=== PATIENT | male | born 1945 | race Caucasian/White ===

== ENCOUNTER 2023-04-06 07:07 | Outpatient (RCR) | payer MEDICARE, OTHER, SELFPAY | END 2023-04-06 10:15 | disposition home or self-care (01) | LOC: RPT 07:07 | PROVIDERS: ATTENDING PHYSICIAN Physical Medicine & Rehabilitation; FAMILY PHYSICIAN Physician Assistant | DX: I71.010 Dissection of ascending aorta (principal); Z73.6 Limitation of activities due to disability; J38.00 Paralysis of vocal cords and larynx, unspecified; R49.0 Dysphonia | CPT/HCPCS: 92507; 97112; 97530 ==

== ENCOUNTER 2023-05-31 06:14 | Day surgery (SDC) | payer OTHER, SELFPAY ==
[2023-05-22 09:05] VITALS: BMI 32.0
[2023-05-22 09:06] LABS: Hematocrit 38.6 % (39.0-52.0); Hemoglobin 12.4 g/dL (13.0-18.0); Mean Corp Hgb Conc. 32.1 g/dL (33.0-37.0); Mean Corpuscular Hgb 26.4 pg (27.0-31.0); Mean Corpuscular Volume 82.1 fL (80.0-94.0); Mean Platelet Volume 10.8 fL (7.4-10.4); Platelet Count 220 10^3/uL (130-400); White Blood Cell Count 5.4 10^3/uL (4.8-10.8)
[2023-05-22 09:22] LABS: INR 2.32; PT 25.9 Sec (11.4-14.6)
[2023-05-22 09:23] LABS: APTT 62.3 Sec (23.4-35.0)
[2023-05-22 09:42] LABS: ALT (SGPT) 32 U/L (0-50); AST (SGOT) 27 U/L (17-59); Albumin 3.7 g/dl (3.5-5.0); Alkaline Phosphatase 73 U/L (38-126); Blood Urea Nitrogen 24 mg/dl (9-20); Carbon Dioxide 28 mmol/L (22-30); Chloride 101 mmol/L (98-107); Estimated Creatinine Clearance 92 ml/min; Glucose 100 mg/dl (70-99); Potassium 4.1 mmol/L (3.5-5.1); Sodium 136 mmol/L (135-145); Total Bilirubin 0.8 mg/dl (0.2-1.3); Total Protein 5.9 g/dl (6.3-8.2); eGFR > 60.00
--- NOTE | 2023-05-29 10:44 | PTCARENOTE ---
Cely in Dr. Isidro office made aware of INR 2.32, PTT 62.3. Pt is on wafarin.
[2023-05-31] VITALS (9 sets, daily range): BP systolic 129–160; BP diastolic 72–96; BMI 32.0
[2023-05-31] MEDS: NORMOSOL-R 1000 IV (08:00)
[2023-05-31] MEDS: AMPICILLIN 108 MG IV (08:40)
[2023-05-31] MEDS: TYLENOL 650 MG PO (13:47)
--- NOTE | 2023-05-31 14:03 | PTCARENOTE ---
Patient is mildly dizzy with standing. Per d/c instructions patient is to expect mild dizziness. Patient did void prior to discharge. Patient awaiting surgeon to see him prior to discharge per surgeon. Will monitor patient.
== END 2023-05-31 14:22 | disposition home or self-care (01) ==
LOC: SDS 06:14
PROVIDERS: ATTENDING PHYSICIAN Otolaryngology; FAMILY PHYSICIAN Physician Assistant; OTHER PHYSICIAN Internal Medicine Cardiovascular Disease
DX: J38.01 Paralysis of vocal cords and larynx, unilateral (principal); H72.01 Central perforation of tympanic membrane, right ear; R49.0 Dysphonia
CPT/HCPCS: 31571; 69610; 36415; 80053; 85027; 85610; 85730; C1878

== ENCOUNTER → 2023-07-11 09:05 | Outpatient (REF) | payer OTHER, SELFPAY | LOC: HWRAD 09:05 | PROVIDERS: ATTENDING PHYSICIAN Thoracic Surgery (Cardiothoracic Vascular Surgery); FAMILY PHYSICIAN Physician Assistant | DX: Z98.890 Other specified postprocedural states (principal); Z01.818 Encounter for other preprocedural examination | CPT/HCPCS: 71275; 74174; Q9967 ==

== ENCOUNTER → 2023-07-17 07:28 | Outpatient (REF) | payer OTHER, SELFPAY ==
[2023-07-17 09:34] LABS: Blood Urea Nitrogen 22 mg/dl (9-20); Calcium 9.6 mg/dl (8.4-10.2); Carbon Dioxide 29 mmol/L (22-30); Chloride 100 mmol/L (98-107); Glucose 98 mg/dl (70-99); Potassium 4.5 mmol/L (3.5-5.1); Sodium 137 mmol/L (135-145); eGFR > 60.00
[2023-07-17 09:44] LABS: INR 1.16; PT 14.6 Sec (11.4-14.6)
== END ==
LOC: HWLAB 07:28
PROVIDERS: ATTENDING PHYSICIAN Internal Medicine Cardiovascular Disease; FAMILY PHYSICIAN Physician Assistant; REFERRING PHYSICIAN Internal Medicine Cardiovascular Disease
DX: I48.0 Paroxysmal atrial fibrillation (principal); I10 Essential (primary) hypertension
CPT/HCPCS: 36415; 80048; 85610

== ENCOUNTER → 2023-08-30 11:37 | Outpatient (REF) | payer OTHER, SELFPAY ==
[2023-08-30 15:19] LABS: Albumin 4.2 g/dl (3.5-5.0); Blood Urea Nitrogen 27 mg/dl (9-20); Calcium 9.2 mg/dl (8.4-10.2); Carbon Dioxide 26 mmol/L (22-30); Chloride 102 mmol/L (98-107); Glucose 97 mg/dl (70-99); Phosphorus 4.3 mg/dl (2.5-4.5); Potassium 4.7 mmol/L (3.5-5.1); Sodium 135 mmol/L (135-145); eGFR > 60.00
== END ==
LOC: HWLAB 11:37
PROVIDERS: ATTENDING PHYSICIAN Internal Medicine Cardiovascular Disease; FAMILY PHYSICIAN Physician Assistant; REFERRING PHYSICIAN Internal Medicine Cardiovascular Disease
DX: I10 Essential (primary) hypertension (principal)
CPT/HCPCS: 36415; 80069

== ENCOUNTER → 2023-10-12 12:50 | Outpatient (REF) | payer OTHER, SELFPAY | LOC: RCS 12:50 | PROVIDERS: ATTENDING PHYSICIAN Nurse Practitioner | DX: I48.0 Paroxysmal atrial fibrillation (principal) | CPT/HCPCS: 93005 ==

== ENCOUNTER → 2023-10-18 09:58 | Outpatient (REF) | payer OTHER, SELFPAY | LOC: RCS 09:58 | PROVIDERS: ATTENDING PHYSICIAN Internal Medicine Cardiovascular Disease; FAMILY PHYSICIAN Physician Assistant | DX: I48.0 Paroxysmal atrial fibrillation (principal) | CPT/HCPCS: 93225; 93226 ==

== ENCOUNTER → 2023-11-28 11:10 | Outpatient (REF) | payer OTHER, SELFPAY ==
[2023-11-28 12:21] LABS: % Basophils 0.5 % (0-2); % Eosinophils 1.1 % (0-6); % Immature Granulocytes 0.4 % (0-0.5); % Lymphocytes 14.7 % (20.5-51.1); % Neutrophils 78.3 % (42.2-75.2); Absolute Eosinophils 0.1 10^3/uL (0-0.7); Absolute Lymphocytes 1.1 10^3/uL (1.2-3.4); Absolute Monocytes 0.4 10^3/uL (0.1-0.6); Absolute Neutrophils 5.8 10^3/uL (1.4-6.5); Hematocrit 40.3 % (39.0-52.0); Hemoglobin 13.4 g/dL (13.0-18.0); Mean Corp Hgb Conc. 33.3 g/dL (33.0-37.0); Mean Corpuscular Hgb 28.4 pg (27.0-31.0); Mean Corpuscular Volume 85.4 fL (80.0-94.0); Mean Platelet Volume 10.4 fL (7.4-10.4); Nucleated Red Blood Cells % 0 % (-); Platelet Count 186 10^3/uL (130-400); Red Blood Cell Count 4.72 10^6/uL (4.70-6.10); Red Cell Dist. Width 13.2 % (11.5-14.5); White Blood Cell Count 7.4 10^3/uL (4.8-10.8)
[2023-11-28 14:10] LABS: Albumin 4.6 g/dl (3.5-5.0); Blood Urea Nitrogen 27 mg/dl (9-20); Calcium 9.2 mg/dl (8.4-10.2); Carbon Dioxide 27 mmol/L (22-30); Chloride 100 mmol/L (98-107); Glucose 99 mg/dl (70-99); Iron 104 ug/dl (49-181); Phosphorus 3.8 mg/dl (2.5-4.5); Potassium 4.4 mmol/L (3.5-5.1); Sodium 136 mmol/L (135-145); eGFR > 60.00
[2023-11-28 14:19] LABS: Percent Saturation 36 % (20-50); Total Iron Binding Capacity 285 ug/dl (261-462)
== END ==
LOC: HWLAB 11:10
PROVIDERS: ATTENDING PHYSICIAN Internal Medicine Cardiovascular Disease; FAMILY PHYSICIAN Physician Assistant
DX: I71.010 Dissection of ascending aorta (principal); I71.012 Dissection of descending thoracic aorta; I10 Essential (primary) hypertension; D50.9 Iron deficiency anemia, unspecified
CPT/HCPCS: 36415; 80069; 83540; 83550; 85025

== ENCOUNTER 2023-12-18 22:12 | Observation (INO) | payer OTHER, SELFPAY ==
[2023-12-18 15:09] VITALS: BP 150/82
[2023-12-18 15:39] LABS: % Basophils 0.4 % (0-2); % Eosinophils 1.1 % (0-6); % Immature Granulocytes 0.6 % (0-0.5); % Monocytes 5.1 % (1.7-9.3); % Neutrophils 82.8 % (42.2-75.2); Absolute Eosinophils 0.1 10^3/uL (0-0.7); Absolute Immature Granulocytes 0.1 10^3/uL (0-0.05); Absolute Lymphocytes 0.8 10^3/uL (1.2-3.4); Absolute Monocytes 0.4 10^3/uL (0.1-0.6); Absolute Neutrophils 6.9 10^3/uL (1.4-6.5); Hematocrit 35.4 % (39.0-52.0); Hemoglobin 12.2 g/dL (13.0-18.0); Mean Corp Hgb Conc. 34.5 g/dL (33.0-37.0); Mean Corpuscular Hgb 28.2 pg (27.0-31.0); Mean Corpuscular Volume 81.9 fL (80.0-94.0); Mean Platelet Volume 10.4 fL (7.4-10.4); Nucleated Red Blood Cells % 0 % (-); Platelet Count 173 10^3/uL (130-400); Red Blood Cell Count 4.32 10^6/uL (4.70-6.10); Red Cell Dist. Width 13.4 % (11.5-14.5); White Blood Cell Count 8.3 10^3/uL (4.8-10.8)
[2023-12-18 16:10] LABS: ALT (SGPT) 22 U/L (0-50); AST (SGOT) 28 U/L (17-59); Albumin 4.5 g/dl (3.5-5.0); Alkaline Phosphatase 93 U/L (38-126); Blood Urea Nitrogen 24 mg/dl (9-20); Calcium 8.9 mg/dl (8.4-10.2); Carbon Dioxide 24 mmol/L (22-30); Chloride 102 mmol/L (98-107); Glucose 140 mg/dl (70-99); Potassium 4.3 mmol/L (3.5-5.1); Sodium 137 mmol/L (135-145); Total Bilirubin 0.9 mg/dl (0.2-1.3); Total Protein 6.7 g/dl (6.3-8.2); eGFR > 60.00
[2023-12-18 17:00] VITALS: BP 136/76
[2023-12-18] MEDS: TYLENOL 500 MG PO (18:34)
[2023-12-18 19:00] VITALS: BP 128/97
[2023-12-18 19:09] LABS: Troponin I < 0.012 ng/ml
--- NOTE | 2023-12-18 19:22 | ED.GENMED ---
History of Present Illness
General
Chief Complaint: Fainting Sensation
Time Seen by Provider: 12/18/23 17:21
History of Present Illness
History of Present Illness:
78-year-old male with history of hypertension, aortic dissection, CVA presenting to the emergency department for concern of strokelike symptoms. Patient reports around 1 PM today he was walking and felt off balanced. He was in his house, went
upstairs and saw his . His noted that he was diaphoretic and pale on the plane he was going to pass out, so he sat down. He reports that he had a stroke in August, at which time his symptoms were visual. Denied any chest pain or difficulty
breathing. Denies weakness or numbness to his extremities. felt that his face was slightly drooped. He checked his blood pressure during the event, reports that it was elevated, and notes that his boarding mother recently increase his valsartan
from once a day to twice a day. He notes that his symptoms have since improved, reports some residual headache. He denies additional acute medical complaints.
Past History
Past History
ED Past Medical History: HTN, Hypercholesterolemia and Other (Aortic dissection)
ED Past Surgical History: Cardiac and Orthopedic
Social History
Tobacco: Non-smoker
Alcohol: None
Drug: None
Personal:
Living: with family
Phy Exam
Physical Exam
Physical Exam:
General: Well-appearing, no clinical signs of dehydration, nontoxic and in no acute distress
HEENT: protecting airway
Neck: appears supple
CV: Normal heart rate, regular rhythm, no evidence of cyanosis
Resp: No accessory muscle use, no increased work of breathing, lungs clear to auscultation bilaterally
Abd: Soft and non-distended, no tenderness to palpation
Extremities: No deformities, no swelling, no erythema
Neuro: alert, no focal neurologic deficit
: deferred
Rectal: deferred
Psych: Normal affect
Skin: Intact
Scores
NIH Stroke Score
Level of Consciousness: 0 - Alert
LOC Questions: 0-Answers both correctly
LOC Commands: 0-Performs both correctly
Best Horizontal Gaze: 0-Normal
Visual Rhodes: 0=Normal, no visual loss
Facial Palsy: 0=Normal, symmetrical
Motor - Right Arm: 0=No drift 10 seconds
Motor - Left Arm: 0=No drift 10 seconds
Motor - Right Le-No drift 5 seconds
Motor - Left Le-No drift 5 seconds
Limb Ataxia: 0-Absent
Sensation: 0-Normal
Best Language: 0-No aphasia
Dysarthria: 0-Normal
Extinction and Inattention: 0-No abnormality
Total Score:: 0
Course
Orders/Labs/Results
Orders:
Orders
12/18/23 15:12
Electrocardiogram (*1) Urgent
Reason for Study: Vertigo / Dizzy
12/18/23 15:13
EKG- Treatment ONCE
12/18/23 15:31
CMP [Comprehensive Metabolic Panel] Urgent
Complete Blood Count/With Diff Urgent
12/18/23 18:12
CT Head W/o Iv Contrast Urgent
Comment:
Reason For Exam: episode of dizzy, lightheaded, hx CVA
12/18/23 18:17
Electrocardiogram (*1) Urgent
Reason for Study: Other
Other Reason for Exam: dizzy
EKG- Treatment ONCE
12/18/23 18:25
Acetaminophen [Tylenol] 500 mg PO NOW STA
12/18/23 18:36
Troponin I Urgent
Abnormal Lab Results
12/18/23
15:31
RBC 4.32 L 10^6/uL
(4.70-6.10)
Hgb 12.2 L g/dL
(13.0-18.0)
Hct 35.4 L %
(39.0-52.0)
Abs Immat Gran (auto) 0.1 H 10^3/uL
(0-0.05)
Absolute Neuts (auto) 6.9 H 10^3/uL
(1.4-6.5)
Absolute Lymphs (auto) 0.8 L 10^3/uL
(1.2-3.4)
Immature Gran % 0.6 H %
(0-0.5)
Neutrophils % 82.8 H %
(42.2-75.2)
Lymphocytes % 10.0 L %
(20.5-51.1)
BUN 24 H mg/dl
(9-20)
Glucose 140 H mg/dl
(70-99)
12/18/23 15:31
12/18/23 15:31
Vital Signs
Initial and Last Documented VS:
Initial Vital Signs
Temp Pulse Resp BP Pulse Ox
98.1 F 53 20 150/82 98
12/18/23 15:09 12/18/23 15:09 12/18/23 15:09 12/18/23 15:09 12/18/23 15:09
Last Documented Vital Signs
Temp Pulse Resp BP Pulse Ox
98.1 F 72 20 129/89 99
12/18/23 15:09 12/18/23 20:00 12/18/23 20:00 12/18/23 20:00 12/18/23 20:00
MDM/Problems Addressed
MDM/Problems Addressed:
78-year-old male with history of CVA, hypertension, aortic dissection presenting for episode of feeling off balance and lightheaded. Vital signs significant for mild hypertension.
On exam patient is resting comfortably, no acute distress or discomfort. Patient primarily concerned for stroke, had similar symptoms in the past, was diagnosed with a stroke, however at that time his symptoms also had a visual component. Symptoms
have since resolved, so diagnosis of TIA is more likely. NIH of 0, without indication for tPA. Hypertensive urgency versus emergency is also a consideration, notes that at the time of the symptoms, checked his blood pressure, elevated with
systolic greater than 180. Denied any chest pain or difficulty breathing at that time. EKG obtained, appears relatively unchanged from prior. Notes history of aortic dissection in the past, however again without any cardiac symptoms, lower
suspicion for aortic catastrophe. Will obtain laboratory analysis and CT brain imaging for further evaluation.
20:00 - Labs unremarkable. CT without acute intracranial abnormality. However, given preceding symptoms, duration of symptoms prior to stroke, feel patient warrants admission for continued monitoring and neurologic consultation, potential MRI.
Patient agreeable to plan.
*EKG
Interpreted by ED Provider?: Yes
EKG Intrepretation Date: 12/18/23
EKG Intrepretation Time: 19:26
Interpretation: normal
Comparison EKG: no changes
Heart Rate: 60
Rate: normal
Rhythm: sinus and PVC's
Interval: first degree heart block
QRS Pattern: normal QRS
Ischemia: non-specific ST changes
*Critical Care Note
Total Time (30-74mins, 75-104mins- exclusive of procedures): Not Applicable
ED Attending Note
-
Portions of this chart may have been created with voice recognition software.� Occasional wrong word or��sound alike� substitutions may have occurred due to the inherent limitations of voice recognition software.
Discharge Plan
Departure
Patient Disposition: Admit
Date of Disposition: 12/18/23
Time of Disposition: 20:11
Presentation/result/management discussed w/ accepting MD/DO: Hospitalist
Discharge Problem:
Stroke-like symptoms
Prescriptions:
No Action
aspirin 81 mg Tablet,Chewable
81 mg PO DAILY Qty: 0 0RF
acetaminophen 325 mg Tablet
650 mg PO Q4HPRN PRN (Reason: mild pain,headache,temp >101F ) Qty: 0 0RF
furosemide 40 mg tablet
40 mg PO DAILY
Rx Instructions:
Hold for systolic blood pressure under 110.
atorvastatin 80 mg Tablet
80 mg PO HS
carvedilol 6.25 mg Tablet
6.25 mg PO BID
fluticasone propionate [Flonase] 50 mcg/actuation [place],Suspension
1 spray INTRANASAL DAILYPRN PRN (Reason: conjestion)
loratadine [Claritin] 10 mg Tablet
10 mg PO DAILYPRN PRN (Reason: allergies)
valsartan 160 mg Tablet
160 mg PO BID
ferrous sulfate [FeroSul] 325 mg (65 mg iron) tablet
325 mg PO .5X DAILY
melatonin 5 mg tablet
5 mg PO HSPRN PRN (Reason: Sleep)
potassium chloride 20 mEq Tablet,Er Particles/Crystals
20 meq PO DAILY Qty: 30 0RF
pantoprazole 40 mg Tablet,Delayed Release (Dr/Ec)
40 mg PO DAILY Qty: 30 0RF
Referrals:
Queenie Wheatley PA-C [Family Provider] -
Interventions
Interventions:
*Risk Screen - Suicide Last Done: 12/18/23 19:25
*General Assessment Last Done: 12/18/23 19:25
*Neglect/Abuse Screening Last Done: 12/18/23 19:25
ED- Fall Risk Assessment Last Done: 12/18/23 19:25
*ED COVID-19 Vaccine History Last Done: 12/18/23 19:25
ED- Cardiac Assessment Last Done: 12/18/23 17:03
ED- Neurological Assessment Last Done: 12/18/23 17:03
Discharge Date and Time
Print Language: BRAZILIAN
[2023-12-18 20:00] VITALS: BP 129/89
[2023-12-18 21:00] VITALS: BP 126/73
--- NOTE | 2023-12-18 21:45 | HPS.HSE ---
Addendum entered and electronically signed by Aries Mckinley DO 12/18/23 23:34:
Patient seen and examined independently. Agree with findings and plan as set forth by Adriana Talavera PA-C.
Patient is a 78y M with PMH significant for A-Fib, HTN, aortic dissection and prior CVA who presents to ED for evaluation of lightheadedness / dizziness. Patient states that he was seated at his desk today and had been feeling very well. He
stood and became lightheaded, dizzy and felt as if he might pass out. He sat back down and closed his eyes for about 5 minutes. The symptoms improved but did not resolve. He completed a few work calls and when he stood again he again felt
lightheaded and dizzy. Given his persistent symptoms, EMS was called and patient was brought to the ED for further evaluation. He is currently resting comfortably in the ED and has no persistent symptoms / complaints.
Patient was seen at [facility] in late August for symptoms of double-vision. He was reportedly transfered to [place] - though he does not believe he had any bleeding, etc. His Eliquis was apparently stopped at that time.
No other / more recent med changes.
Ass:
Lightheadedness / Ataxia
Paroxysmal Atrial Fibrillation
ASCVD / Prior CVA
Chronic HFpEF
Benign Hypertension
GERD
Aortic Dissection s/p Repair
Plan:
Observe overnight for further evaluation and treatment.
Monitor for any new/ recurrent neurologic changes.
MRI in AM for further evaluation.
PT / OT / Neurology evaluation.
Continue current ASA and add Plavix.
? resume Eliquis given patient with A-Fib, prior CVA and current symptoms?
Continue current BP medications and adjust as needed for normotension.
Original Note:
Family Physician
-
Family Physician: Queenie Wheatley
Chief Complaint
-
Ataxia
History of Present Illness
Pt is a 78 yo M with PMH aortic dissection, atrial fibrillation, HTN, HLD, and prior CVA p/w ataxia and lightheadedness. 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
He thought he was going to faint, sat down, and asked to call the ambulance. He states his bp was elevated (164/110) when ambulance arrived. He also c/o headache, nausea, and diaphoresis. At this point in time symptoms have resolved.
He reports incident of vision changes (blurry, double vision) on 09/18 diagnosed as CVA at [facility]. His Eliquis was discontinued after this event, though details on this are unclear. He admits his bp has been elevated over the last couple weeks
and admits valsartan has been increased by his sap business intelligence consultant (Dr. Moffett). He denies fever, vision changes, weakness, numbness, chest pain, palpitations, SOB, N/V, and paresthesia.
Medical History
Past Medical History
Past Medical History: Reports Other
Additional Past Medical History:
[place] Type A Aortic Dissection
Chronic HFpEF
Paroxysmal Atrial Fibrillation
Essential Hypertension
Hyperlipidemia
GERD
Past Surgical History: Reports Other
Additional Past Surgical History:
Aortic Dissection Repair with Aortic Valve Replacement
Spine Surgery
Vocal Cord Surgery
Social History
Tobacco: Non-smoker
Alcohol: Occasional
Family History
Family History: Not pertinent
Allergies / Home Medications
Allergies reflects when Allergies were last updated in [facility] [facility].
Home Medications with original date entered in [facility] [employer]
Allergy/Medication List:
Allergies
Allergy/AdvReac Type Severity Reaction Status Date / Time
No Known Allergies Allergy Verified 05/31/23 07:45
Home Medications
acetaminophen 325 mg tablet 650 mg (2 x 325 mg) PO Q4HPRN PRN mild pain,headache,temp >101F #0 tabs 12/20/22
aspirin 81 mg chewable tablet 81 mg PO DAILY Arrhythmia #0 tabs 12/20/22
pantoprazole 40 mg tablet,delayed release 40 mg PO DAILY Gastrointestinal issue #30 tabs 01/02/23
potassium chloride 20 mEq tablet,extended release(part/cryst) 20 meq PO DAILY Electrolyte Repletion #30 tabs 01/02/23
furosemide 40 mg tablet 40 mg PO DAILY Fluid retention/Swelling 05/31/23
atorvastatin 80 mg tablet 80 mg PO HS 12/18/23
carvedilol 6.25 mg tablet 6.25 mg PO BID 12/18/23
ferrous sulfate 325 mg (65 mg iron) tablet (FeroSul) 325 mg PO .5X DAILY 12/18/23
fluticasone propionate 50 mcg/actuation nasal spray,suspension 1 spray intranasal DAILYPRN PRN conjestion 12/18/23
loratadine 10 mg tablet (Claritin) 10 mg PO DAILYPRN PRN allergies 12/18/23
melatonin 5 mg tablet 5 mg PO HSPRN PRN Sleep 12/18/23
valsartan 160 mg tablet 160 mg PO BID 12/18/23
Review of Systems
-
A 12 point ROS was completed and negative except as noted: Yes
Constitutional: Denies Fever or Chills
Respiratory: Denies Cough or Trouble Breathing
Cardiac: Denies Chest Pain or Palpitations
Abdomen/GI: Denies Abdominal Pain, Nausea, Vomiting or Diarrhea
Neurological: Reports See HPI
Physical Exam
Vital Signs
Vital Signs
Temp Pulse Resp BP Pulse Ox
98.1 F 73 23 126/73 98
12/18/23 15:09 12/18/23 21:30 12/18/23 21:30 12/18/23 21:00 12/18/23 21:30
Physical Exam
General: Comfortable and Conversant
HEENT: Anicteric and Moist mucous membranes
Respiratory: Clear and Non Labored Respirations
Cardiac: S1/S2 and Regular Rhythm
GI: Soft and Non Tender
Rectal: Deferred by Provider
Musculoskeletal: No Clubbing and No Cyanosis
Skin: Warm and Dry
Neuro: Awake, Alert, Oriented and No Motor Deficits
Psych: Calm
Laboratory Results
-
12/18/23 15:31
12/18/23 15:31
Laboratory Results
Total Bilirubin 0.9 mg/dl (0.2-1.3) 12/18/23 15:31
AST 28 U/L (17-59) 12/18/23 15:31
ALT 22 U/L (0-50) 12/18/23 15:31
Alkaline Phosphatase 93 U/L (38-126) 12/18/23 15:31
Troponin I < 0.012 ng/ml 12/18/23 18:36
Data Reviewed
-
CT Scan: Report Reviewed by me
Lab Data: Labs Reviewed by me
Old Records: Requested and Reviewed
Impression/Plan
-
Ataxia, possible TIA/CVA
-Consult Neurology
-Check Brain MRI
-Continue Aspirin - Add Plavix
-Check Orthostatic VS
Paroxysmal Atrial Fibrillation
-Patient is currently off Eliquis following hospitalization at [facility] in August/September - Attempt to obtain records
-Continue Coreg for rate control
Chronic HFpEF
-Continue Furosemide
-Monitor Is&Os and Daily Weights
Essential Hypertension
-Continue Coreg and Valsartan
GERD
-Continue Protonix
DVT proph: SCDs
Code Status: Full Code
[2023-12-18 23:00] VITALS: BP 119/72; BP 133/68; BP 155/78; PULSE 60; PULSE 68; PULSE 73; BMI 29.4
--- NOTE | 2023-12-18 23:00 | PTCARENOTE ---
Pt arrived from ED via stretcher and ambulated to bed. Pt is AAOx3, VSS, and w/o complaints of pain. Pt is resting comfortably w/ call markham within reach.
[2023-12-18] MEDS: MELATONIN 5 MG PO (23:42)
[2023-12-18] MEDS: LIPITOR 80 MG PO (23:43)
[2023-12-19] VITALS (8 sets, daily range): BP systolic 104–154; BP diastolic 56–85; PULSE 53–75; O2SAT 99; BMI 31.1
[2023-12-19 07:18] LABS: Hemoglobin 12.8 g/dL (13.0-18.0); Mean Corp Hgb Conc. 33.7 g/dL (33.0-37.0); Mean Corpuscular Hgb 28.5 pg (27.0-31.0); Mean Corpuscular Volume 84.6 fL (80.0-94.0); Platelet Count 150 10^3/uL (130-400); Red Blood Cell Count 4.49 10^6/uL (4.70-6.10); Red Cell Dist. Width 13.3 % (11.5-14.5); White Blood Cell Count 5.5 10^3/uL (4.8-10.8)
--- NOTE | 2023-12-19 07:48 | W.PN.HOSP.TC ---
Today's Communication/Plan
-
Appreciate cardiology's help with patient's A-Fib and concerns for pauses on telemetry
Appreciate neurology
Acute to subacute stroke on MRI
Assessment / Plan
Assessment / Plan
Physical Exam
Physical Exam was not performed as patient was not present in his room at the time of attempted patient encounter.

MRI BRAIN ( PER RADIOLOGIST'S REPORT)
'IMPRESSION: Focus of acute to subacute infarction within the posterolateral left cerebellar hemisphere.
Focal area of encephalomalacia involving the anterolateral and superior left frontal lobe, compatible with old infarction, although a new finding CT of the head from December 12, 2022.
Foci of old infarction in the head of the caudate nucleus/ periventricular white matter lateral to the anterior body of the right lateral ventricle, and within the right lentiform nucleus.
Posterior disc/osteophyte complex at C3-4 appears to compress the spinal cord, possibly with a degree of central canal stenosis. As warranted, further evaluation with MRI of the cervical spine could be considered.'

Assessment/Plan
78y M with PMH significant for A-Fib, HTN, aortic dissection and prior CVA who presents to ED for evaluation of lightheadedness / dizziness. Patient states that he was seated at his desk on 12/18/23 and had been feeling very well. He stood and
became lightheaded, dizzy and felt as if he might pass out. He sat back down and closed his eyes for about 5 minutes. The symptoms improved but did not resolve. He completed a few work calls and when he stood again he again felt lightheaded and
dizzy. Given his persistent symptoms, EMS was called and patient was brought to the ED for further evaluation. At the time of admission, he was resting comfortably with no persistent symptoms / complaints.
Patient was seen at [facility] in late August for symptoms of double-vision. He was reportedly transfered to [place] - though he does not believe he had any bleeding, etc. His Eliquis was apparently stopped at that time.
No other / more recent med changes.
78 y/o male with lightheadedness / dizziness episode on 12/18/23. HTN, h/o aortic dissection, prior CVA, etc. [place] better once in the emergency department. BP initially elevated and now improved. CVA / TIA eval. MRI.
Lightheadedness/Ataxia, possible TIA/CVA
-Consulted Neurology, appreciate recommendations
-Brain MRI with acute to subacute infarction in the posterolateral left cerebellar hemisphere
-Continue Aspirin - and Plavix added
-Echocardiogram
-Check Orthostatic VS
? resume Eliquis given patient with A-Fib, prior CVA and current symptoms?
Continue current BP medications and adjust as needed for normotension.
Paroxysmal Atrial Fibrillation
Concern for pauses on telemetry
-Patient is currently off Eliquis following hospitalization at [facility] in August/September - Attempt to obtain records
-Continue Coreg for rate control
-Consulted cardiology, appreciate evaluation and recommendations
Chronic HFpEF
-Continue Furosemide
-Monitor Is&Os and Daily Weights
Essential Hypertension
-Continue Coreg and Valsartan
GERD
-Continue Protonix
ASCVD / Prior CVA
Aortic Dissection s/p Repair
DVT proph: SCDs and Lovenox.
Code Status: Full Code
Anticipated Discharge: Within 24 hours
Subjective/Interval History
-
Date of Service: December 19, 2023
Patient was not present in his room at the time of attempted patient encounter. Chart reviewed.
Objective Data
-
Labs:
Laboratory Results
12/19/23
06:44
WBC 5.5
Hgb 12.8 L
Hct 38.0 L
Plt Count 150
Sodium Pending
Potassium Pending
Chloride Pending
Carbon Dioxide Pending
BUN Pending
Creatinine Pending
Glucose Pending
Calcium Pending
Vital Signs:
Vital Signs
Temp Pulse Resp BP Pulse Ox
97.8 F 81 18 124/78 98
12/19/23 03:06 12/19/23 03:06 12/19/23 03:06 12/19/23 03:06 12/19/23 03:06
I&O
12/18/23 12/19/23 12/20/23
06:59 06:59 06:59
Intake Total 480 / 480
Balance 480 / 480
[2023-12-19 07:56] LABS: Blood Urea Nitrogen 18 mg/dl (9-20); Calcium 9.3 mg/dl (8.4-10.2); Carbon Dioxide 30 mmol/L (22-30); Chloride 101 mmol/L (98-107); Estimated Creatinine Clearance 90 ml/min; Glucose 98 mg/dl (70-99); HDL Cholesterol 47 mg/dl; LDL Cholesterol, Calculated 41 mg/dl; Magnesium 2.2 mg/dl (1.6-2.3); Potassium 4.2 mmol/L (3.5-5.1); Sodium 140 mmol/L (135-145); Total Cholesterol 102 mg/dl (50-199); Triglyceride 70 mg/dl (10-149); Very Low Density Lipoprotein 14 mg/dl (0-30); eGFR > 60.00
[2023-12-19] MEDS: LOW STRENGTH ASPIRIN 81 MG PO (08:11)
[2023-12-19] MEDS: KCL 20 MEQ PO (08:11)
[2023-12-19] MEDS: LASIX 40 MG PO (08:11)
[2023-12-19] MEDS: PLAVIX 75 MG PO (08:11)
[2023-12-19] MEDS: DIOVAN 160 MG PO ×2 (08:11→19:58)
[2023-12-19] MEDS: PROTONIX 40 MG PO (08:11)
[2023-12-19] MEDS: COREG 6.25 MG PO ×2 (08:11→20:00)
--- NOTE | 2023-12-19 08:16 | PTOTSP ---
Dysphagia Evaluation
Suspect oral/pharyngeal stages of swallowing within functional limits. 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
pharyngeal) but on a regular, thin liquid diet at baseline. Cannot rule out silent aspiration bedside. If concerned for this given concern for possible CVA, consider video swallow study.
Recommend:
1. Regular, Thin Liquids
2. Medications as best tolerated
3. General aspiration and reflux precautions
4. Oral care 3x daily
5. Speech/language/cognitive evaluation pending results of MRI of Brain.
6. Could consider video swallow study to r/o silent aspiration as appropriate pending results of MRI of Brain.
[2023-12-19 08:21] LABS: Glycohemoglobin (HgbA1c) 5.3 % (4.0-5.6)
--- NOTE | 2023-12-19 09:11 | CON.NEURO4 ---
Consultation - Neurology 4
-
CONSULTING PHYSICIAN: Brianne
REFERRING PHYSICIAN: hospitalist
DICTATED BY: Brianne
DATE/TIME OF REQUEST: 12/19/23
DATE/TIME OF CONSULTATION: 12/19/23
Reason for Consultation: ?tia
History of Present Illness:
78 year-old male with a history of stroke and aortic dissection admitted for evaluation after experiencing lightheadedness / dizziness. Yesterday he was seated and suddenly did not feel well. He stood up, had lightheadedness, dizziness and felt
like he could pass out. He sat back down and closed his eyes for about 5 minutes. The symptoms improved but did not resolve. He was able to carry out a few work calls; he then stood again and felt lightheaded and dizzy. 911 was called. In the
ED, his symptoms had resolved. Reports that he had LH and dizziness upon standing again today that was transient.
From my clinic note, seen 11/16/23, seen once in f/u:
'78-year-old male with a history of stroke hospitalized on September 18 through September 23 at [facility] and then transferred to the [facility].� History was taken from the patient and from a discharge summary from [facility]. He has a history of
prior aortic surgery, atrial fibrillation on Eliquis and hypertension. He was at home on September 18 when he developed dizziness and diplopia that he noted upon wakening. He sat on the edge of his bed for 10-15 mins and when his symptoms did not improve
he called 911. He was taken to [facility] where he was noted to have dysarthria and left-sided weakness.He does not remember having the latter symptoms. He was loaded with ASA and Plavix and then transferred to [facility] after an intramural hematoma in
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 Stroke location and details of testing at [facility] are unclear.� Saw an eye doctor last week and was told he is doing well.� He is also following up with Dr. Briscoe at [facility].'
Plan at the end of his appointment:
need records from [facility] and [facility]--his discharge summary mentions stroke but does not give any other details; reports no residual effects from stroke
-is on ASA 81mg daily and atorvastatin; can switch back to apixaban when cleared to do so by Dr. Briscoe at [facility]
-continue f/u with CT surgery, cardiology; can f/u with neurology PRN given full testing was likely done at [facility] and he has recovered well
Past Medical History
[place] Type A Aortic Dissection
Chronic HFpEF
Paroxysmal Atrial Fibrillation
Essential Hypertension
Hyperlipidemia
GERD
stroke diagnosed at [facility] in September 2023
Past Surgical History:
Aortic Dissection Repair with Aortic Valve Replacement
Spine Surgery
Vocal Cord Surgery
Social History
Tobacco: Non-smoker
Alcohol: Occasional
Family History
Family History: Not pertinent
Allergies
No Known Allergies Allergy (Verified 05/31/23 07:45)
Home Medications
�Medication �Instructions �Recorded
acetaminophen 325 mg tablet 650 mg (2 x 325 mg) PO Q4HPRN PRN 12/20/22
mild pain,headache,temp >101F #0
tabs
aspirin 81 mg chewable tablet 81 mg PO DAILY Arrhythmia #0 tabs 12/20/22
pantoprazole 40 mg tablet,delayed 40 mg PO DAILY Gastrointestinal 01/02/23
release issue #30 tabs
potassium chloride 20 mEq 20 meq PO DAILY Electrolyte 01/02/23
tablet,extended release(part/cryst) Repletion #30 tabs
furosemide 40 mg tablet 40 mg PO DAILY Fluid 05/31/23
retention/Swelling
atorvastatin 80 mg tablet 80 mg PO HS 12/18/23
carvedilol 6.25 mg tablet 6.25 mg PO BID 12/18/23
ferrous sulfate 325 mg (65 mg 325 mg PO .5X DAILY 12/18/23
iron) tablet (FeroSul)
fluticasone propionate 50 1 spray intranasal DAILYPRN PRN 12/18/23
mcg/actuation nasal conjestion
spray,suspension
loratadine 10 mg tablet (Claritin) 10 mg PO DAILYPRN PRN allergies 12/18/23
melatonin 5 mg tablet 5 mg PO HSPRN PRN Sleep 12/18/23
valsartan 160 mg tablet 160 mg PO BID 12/18/23
Review of Symptoms:
Patient denies any fever, headache, chest pain, shortness of breath, GI or symptoms.
�Per the HPI.�All systems are reviewed negative except above.
Vital Signs
Temp Pulse Resp BP Pulse Ox
97.8 F 67 18 131/95 98
12/19/23 03:06 12/19/23 08:11 12/19/23 03:06 12/19/23 08:11 12/19/23 03:06
Lab Results
12/19/23 06:44
12/19/23 06:44
Sodium 140 mmol/L (135-145) 12/19/23 06:44
Potassium 4.2 mmol/L (3.5-5.1) 12/19/23 06:44
BUN 18 mg/dl (9-20) 12/19/23 06:44
Glucose 98 mg/dl (70-99) 12/19/23 06:44
Calcium 9.3 mg/dl (8.4-10.2) 12/19/23 06:44
LDL Cholesterol, Calc 41 mg/dl 12/19/23 06:44
Physical Exam:
The patient is afebrile, heart sounds S1 and S2 are regular , and chest is clear to auscultation bilaterally.
NIH Stroke Scale:
I performed the NIH stroke scale on the patient on 12/19/23 at 1700. The patient scored 1 points on the NIH stroke scale assessment, which were assigned as follows: ataxia in LLE with heel to garcia.
Neurologic Examination:
The patient is awake, alert and oriented x 3. He is able to follow commands and answer questions appropriately. There is no aphasia or dysarthria. On cranial nerve assessment, pupils are 3 mm bilateral, round and reactive to light and
accommodation. Visual arzate are full. Extraocular movements are intact. Facial sensations are intact and bilaterally symmetrical, there is no facial asymmetry. Hearing is intact bilaterally to normal conversation volume. Tongue palate and uvula
are midline. Sternocleidomastoid strengths are full bilaterally. Motor strengths are 5/5 bilateral upper and lower extremities on medical research Prosperity scale. There is no drift or involuntary movement noted. Deep tendon reflexes are 2+ bilateral
upper and lower extremities and Babinski is absent bilaterally. Sensations of touch, temperatureare intact and bilaterally symmetrical. There was no extinction noted on double simultaneous stimulation. Coordination is intact by finger to nose
bilaterally; some ataxia with heel to garcia in LLE. No LH upon standing but Romberg + (his baseline).
Neuro Imaging:
HCT, 12/17:
No acute intracranial abnormality noted.
Sequelae of mild small vessel ischemic disease with encephalomalacia in the superior left frontal lobe and prior right basal ganglia lacunar infarction.
MRI brain:
Focus of acute to subacute infarction within the posterolateral left cerebellar hemisphere.
Focal area of encephalomalacia involving the anterolateral and superior left frontal lobe, compatible with old infarction, although a new finding CT of the head from December 12, 2022.
Foci of old infarction in the head of the caudate nucleus/ periventricular white matter lateral to the anterior body of the right lateral ventricle, and within the right lentiform nucleus.
Posterior disc/osteophyte complex at C3-4 appears to compress the spinal cord, possibly with a degree of central canal stenosis. As warranted, further evaluation with MRI of the cervical spine could be considered.
Impression:
SILVIA VEOLZ is a 78 year old M who has presented to the hospital after an episode of lightheadedness/dizziness upon standing with associated presyncope. He has a complex PMH including afib off anticoagulation, aortic dissection and past stroke.
Acute to subacute L cerebellar stroke was confirmed on MRI brain, likely embolic in etiology given h/o afib off AC.
Differentials for the patient's presentation include:
1. orthostasis
2. cerebellar stroke
Patient has the following risk factors for their symptoms: prior stroke, afib, age, htn, hld
IV Tenecteplase/IAT candidacy: not a candidate given resolution of symptoms
Recommendations:
-MRA head/neck very likely just done at [facility] or [facility]--request records rather than repeating the study
-BP goal is normotension as >24 hours since symptom onset.
-check orthostatics; continue hydration/compression stockings
-continue ASA 81mg daily. If cleared to switch to anticoagulation, would wait 3 days given small size of stroke (given risk of hemorrhagic conversion). Defer clearance to Dr. Briscoe/Dr. Moffett; patient is considering Watchman procedure
-Hemoglobin A1C is 5.3. Goal is normoglycemia.
- Continue atorvastatin 80 mg by mouth daily at bedtime. LDL is 41. Goal LDL after stroke is <70.
- echo done today showed no CSE.
-PT/OT/ST evaluations
- DVT prophylaxis
-continue neurochecks, NIHSS
Neurology is signing off. Please call with any further questions.
Discussed patient care with: patient, patient's , ER
--- NOTE | 2023-12-19 10:26 | CM ---
Patient seen bedside, initial assessment completed. Patient resides with his in a multiple story home, one step to enter. Patient reports having a walker and cane at home. Patient reports he had a stroke in August and went to [facility], was
discharged with home nursing and PT. Patient reports he has been to [facility] in the past, denies SNF. Patient reports he has been to cardiac rehab in the past through [facility]. Patient confirms PCP Queenie Wheatley, [facility]. Patient confirms
pharmacy [facility] on [address], confirms prescription coverage. Patient denies food, housing/utility, transportation insecurities at home. LAMAR reviewed, signed, placed in chart. Patient provided with copy. CM will continue to follow for all
discharge planning needs, will watch for PT/OT evaluations for possible VN needs.
Plan; home no needs vs VN.
--- NOTE | 2023-12-19 12:18 | CON.CAR ---
Addendum entered and electronically signed by Roberto Carlos Licona MD 12/19/23 15:56:
I saw and examined the patient.
PROOF PRESS OPERATOR note was reviewed and I agree with the note.
78-year-old male with complex history including previous type A thoracic aortic dissection and repair 11/2022 and type B aortic dissection 09/18/2023 with extensive intramural hematoma around the aortic arch. Patient was treated at [facility] and has since
been followed by Dr. Briscoe at [facility] and also follows with Dr. Moffett. History also notable for PAF which included postop A-fib, Mobitz 1 first-degree AV block patient has had previous evaluation by EP during hospitalization at [facility] and also had
outpatient Holter. No indication for pacing thus far. Patient presented with dizziness he stood up and felt off balance and lightheaded. No syncope.
MRI showed subacute infarct, posterolateral left cerebellar.
#Dizziness.
-Consistent with cerebellar CVA.
-No evidence at this time the dizziness is related to arrhythmia. Patient has been stable on telemetry. Findings on telemetry consistent with previous history and previous monitoring
#PAF. Stable. Currently in sinus rhythm. Patient carries diagnosis of PAF has not been on anticoagulation due to concern of risk in this patient who had extensive intramural hematoma with most recent type B dissection. Patient had been referred
for EP consultation to assess for Watchman device. Now the patient has no evidence of CVA risk versus benefit of anticoagulation will need to be reassessed. 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 Moffett who has been
involved in this decision as an outpatient and has also coordinated care with Dr. Briscoe at [facility].
#History of Mobitz 1 secondary AV block. No evidence of higher degree AV block on most recent telemetry review. Continue to monitor on telemetry
# History of pair of type Aortic dissection and more recently history of type B aortic dissection 09/18/2023. Blood pressure, currently stable continue to monitor
Original Note:
Consultation
Consultation Request
Date/Time Consultation Requested: 12/19/23 1139
Date/Time Consultation Performed: 12/19/23 1220
Requesting Provider: Dr. Young
Performing Provider: Karon JOHNSON for Dr. Licona
Reason for Consultation: AFIB, dizziness, pauses on telemetry
Medical History
-
Chief Complaint: light-headedness, balance issues
History of Present Illness:
78 y/o male with type A dissection s/p repair, replacement of ascending aorta, hemiarch, replacement of aortic root with reimplantation of coronary buttons and 27 mm [place]ourke aortic valve 12/12/22, post-op AFIB, vocal chord paralysis/laryngeal fold
s/p repair, type B aortic dissection 09/18/23 (originating at aortic arch extending to the bifurcation of left common iliac artery inferiorly and involvement of right subclavian artery, right internal carotid artery, and left subclavian artery) with
extensive intramural hematoma around aortic arch. For this, he was at [facility] and is being monitored by Dr. Briscoe, hypertension, bradycardia (seen by [facility] EP for intermittent Mobitz 1- no evidence of high-degree AVB and no indication for pacing), and
PAF (not on Eliquis after type B dissection). He is here because yesterday afternoon, he started having balance issues and light-headedness. He came to the ER and is admitted for further eval. MRI shows focus of acute to subacute infarction within
the posterolateral left cerebellar hemisphere. We are consulted due to bradycardia. EKG shows SR with 1st degree AVB. Tele shows SB/SR with 1st degree AVB and Mobitz 1 at times. No prolonged pauses, no advanced heart block. He looks well at the time
of my assessment and is in no distress. I spoke with patient's on phone at his request.
Past Medical History
Past Medical History: Arrhythmias (PAF, bradycardia), CVA, HTN, Valvular Disease and Other (aortic dissection)
Social History
Tobacco: Non-Smoker
Family History
Family History: Reviewed & Not Pertinent
Allergies / Home Medications
Allergy/AdvReac Type Severity Reaction Status Date / Time
No Known Allergies Allergy Verified 05/31/23 07:45
�Medication �Instructions �Recorded �Confirmed �Type
acetaminophen 325 mg tablet 650 mg (2 x 325 mg) PO Q4HPRN PRN 12/20/22 12/18/23 Rx
mild pain,headache,temp >101F #0
tabs
aspirin 81 mg chewable tablet 81 mg PO DAILY Arrhythmia #0 tabs 12/20/22 12/18/23 Rx
pantoprazole 40 mg tablet,delayed 40 mg PO DAILY Gastrointestinal 01/02/23 12/18/23 Rx
release issue #30 tabs
potassium chloride 20 mEq 20 meq PO DAILY Electrolyte 01/02/23 12/18/23 Rx
tablet,extended release(part/cryst) Repletion #30 tabs
furosemide 40 mg tablet 40 mg PO DAILY Fluid 05/31/23 12/18/23 History
retention/Swelling
atorvastatin 80 mg tablet 80 mg PO HS 12/18/23 12/18/23 History
carvedilol 6.25 mg tablet 6.25 mg PO BID 12/18/23 12/18/23 History
ferrous sulfate 325 mg (65 mg 325 mg PO .5X DAILY 12/18/23 12/18/23 History
iron) tablet (FeroSul)
fluticasone propionate 50 1 spray intranasal DAILYPRN PRN 12/18/23 12/18/23 History
mcg/actuation nasal conjestion
spray,suspension
loratadine 10 mg tablet (Claritin) 10 mg PO DAILYPRN PRN allergies 12/18/23 12/18/23 History
melatonin 5 mg tablet 5 mg PO HSPRN PRN Sleep 12/18/23 12/18/23 History
valsartan 160 mg tablet 160 mg PO BID 12/18/23 12/18/23 History
Review of Systems
-
History Source: Patient
All other systems: Negative unless noted
Neurological: Dizzy
Physical Exam
Vital Signs
Temp Pulse Resp BP Pulse Ox
97.9 F 57 20 109/56 98
12/19/23 11:36 12/19/23 11:36 12/19/23 11:36 12/19/23 11:36 12/19/23 11:36
Lab Results
12/19/23 06:44
12/19/23 06:44
Troponin I < 0.012 ng/ml 12/18/23 18:36
Physical Exam
General: Well Developed, Well Nourished and No Apparent Distress
HEENT: Normocephalic and Anicteric
Respiratory: Clear and Non Labored Respirations
Cardiac: Regular Rhythm
Breast: Deferred by me
Musculoskeletal: No Edema
Skin: Warm and Dry
Neuro: AO x 3
Psych: Calm
Impression / Plan
-
Balance issues, light-headedness:
-MRI: Focus of acute to subacute infarction within the posterolateral left cerebellar hemisphere. Other findings as noted.
-neurology is consulted
Arrhythmia:
-Patient has known PAF. His [id number] score is 6 for hypertension, age, stroke, hypertension, vascular disease. However, patient no longer takes Eliquis due to his dissection with intramural hematoma (details below). He has plan for OP watchman
consult with Dr. Clayton next week.
-additionally, patient has history of bradycardia, 1st degree AVB, and 2nd degree Mobitz 1. We see that again on the monitor today. He had a recent Holter monitor with this and also records from [facility] stating that EP saw him for this and he did not
require pacemaker. Tele and EKG's reviewed here: he has SR with 1st degree AVB, RBBB, and Mobitz 1. No prolonged pauses. No advanced degree HB. No indication for pacemaker at this time. These rhythms are not new, but his symptoms are and I do not
believe that he is having symptomatic bradycardia and rather symptoms are from neurologic issue as above. Continue BB with hx dissection as below.
Type A dissection s/p repair, replacement of ascending aorta, hemiarch, replacement of aortic root with reimplantation of coronary buttons and 27 mm [place]ke aortic valve 12/12/22
-AVR stable by echo this admit
Type B aortic dissection 09/18/23 (originating at aortic arch extending to the bifurcation of left common iliac artery inferiorly and involvement of right subclavian artery, right internal carotid artery, and left subclavian artery) with extensive
intramural hematoma around aortic arch.
-followed with Dr. Briscoe ([facility])
-BP and HR control as able
-continue BB, continue ARB. Also have to consider BP goals from stroke standpoint- neuro consult is pending.
HTN:
-on Coreg and valsartan
-follow BP's
Data Reviewed
-
EKG: Tracing Personally Visualized and interpreted (SR with 1st degree AVB and PAC's, RBBB)
MRI: Report Reviewed by me (MRI: Focus of acute to subacute infarction within the posterolateral left cerebellar hemisphere. Focal area of encephalomalacia involving the anterolateral and superior left frontal lobe, compatible with old infarction.
Foci of old infarction in the head of the caudate nucleus/ periventricular white) and Other (matter lateral to the anterior body of the right lateral ventricle, and within the right lentiform nucleus.)
Medical Tests (Nuc Med, Echo etc): Report Reviewed by me (echo 12/19/23: Left ventricle is mildly dilated. Left ventricular ejection fraction is 50-55% by visual assessment/volumetric assessment. Abnormal (paradoxical) septal motion consistent
with postoperative status. Well-seated, normally functioning bioprosthetic aortic valve.)
Labs: Labs Reviewed by me
[2023-12-19] MEDS: TYLENOL 650 MG PO ×3 (12:58→22:07)
[2023-12-19 16:57] LABS: Glucose - Point of Care 105 mg/dl (70-99)
[2023-12-19] MEDS: LOVENOX 40 MG SC (17:49)
[2023-12-19] MEDS: MELATONIN 5 MG PO (21:18)
[2023-12-19] MEDS: LIPITOR 80 MG PO (21:18)
[2023-12-20 03:54] VITALS: BP 125/62
--- NOTE | 2023-12-20 07:46 | W.PN.CD ---
Today's Communication / Plan
-
I await return call from Dr. Briscoe to discuss candidacy for Eliquis.
Okay to discharge from cardiovascular standpoint will reach out to him with the plan for DOAC versus watchman moving forward.
Impression / Plan
-
Balance issues, light-headedness:
-MRI: Focus of acute to subacute infarction within the posterolateral left cerebellar hemisphere. Other findings as noted.
-neurology is consulted
PAF:
-Patient has known PAF. His [id number] score is 5 for hypertension, age,and now CVA.
-Prior to this event, Dr Briscoe recommended no DOAC and watchman, I think he would likely benefit now from DOAC.
-I have reached out to Dr Briscoe, await his return call, he would no start until Sunday anyhow.
- OP watchman consult with Dr. Clayton next week, will not cancel yet
-Okay to discharge and I will reach out to him tomorrow with the plan for Eliquis.
Bradyarrhythmia:
- patient has history of bradycardia, 1st degree AVB, and 2nd degree Mobitz 1. No new arrhythmias seen.
� I do not believe that he is having symptomatic bradycardia and rather symptoms are from neurologic issue as above.
-Continue BB with hx dissection as below.
Type A dissection s/p repair, replacement of ascending aorta, hemiarch, replacement of aortic root with reimplantation of coronary buttons and 27 mm [place]ke aortic valve 12/12/22
-AVR stable by echo this admit
Type B aortic dissection 09/18/23 (originating at aortic arch extending to the bifurcation of left common iliac artery inferiorly and involvement of right subclavian artery, right internal carotid artery, and left subclavian artery) with extensive
intramural hematoma around aortic arch.
-followed with Dr. Briscoe ([place])
-BP and HR control as able
-continue BB, continue ARB. Also have to consider BP goals from stroke standpoint- neuro consult is pending.
HTN:
-on Coreg and valsartan
-follow BP's
Subjective:
He is feeling better, the lightheadedness is improved, still some episodes but not sustained.
Physical Exam
Vital Signs/Labs
Vital Signs
Temp Pulse Resp BP Pulse Ox
98.0 F 72 18 125/62 98
12/20/23 03:54 12/20/23 03:54 12/20/23 03:54 12/20/23 03:54 12/20/23 03:54
12/19/23 12/20/23 12/21/23
06:59 06:59 06:59
Actual Weight 106.821 kg
12/19/23 06:44
12/19/23 06:44
Magnesium 2.2 mg/dl (1.6-2.3) 12/19/23 06:44
Triglycerides 70 mg/dl (10-149) 12/19/23 06:44
LDL Cholesterol, Calc 41 mg/dl 12/19/23 06:44
VLDL Cholesterol, Calc 14 mg/dl (0-30) 12/19/23 06:44
HDL Cholesterol 47 mg/dl 12/19/23 06:44
LAB Results
12/18/23
18:36
Troponin I < 0.012
Physical Exam
Constitutional: No acute distress
Cardiovascular: Rhythm & rate is regular, Pedal edema is absent, JVD pressure is normal and Systolic murmur absent
Respiratory: Respiratory effort normal, Lungs clear to auscul., Wheeze Absent and Crackles Absent
Neuro/Psych: AO x 3
Data Reviewed
-
Date of Service: December 20, 2023
EKG: Other (Telemetry reviewed showed sinus rhythm with primary AV conduction delay, PACs, PVCs, Wenke Bach at times)
[2023-12-20 07:50] VITALS: BP 129/81
[2023-12-20] MEDS: COREG 6.25 MG PO (08:34)
[2023-12-20] MEDS: LOW STRENGTH ASPIRIN 81 MG PO (08:34)
[2023-12-20] MEDS: PROTONIX 40 MG PO (08:34)
[2023-12-20] MEDS: PLAVIX 75 MG PO (08:34)
[2023-12-20] MEDS: KCL 20 MEQ PO (08:34)
[2023-12-20] MEDS: DIOVAN 160 MG PO (08:34)
[2023-12-20] MEDS: LASIX 40 MG PO (08:35)
--- NOTE | 2023-12-20 09:15 | PTOTSP ---
Speech Language Pathology
VIDEOFLUOROSCOPIC SWALLOWING EXAMINATION (VSE) completed. Oropharyngeal phase of swallow WFL. Only trace intermittent pharyngeal residue noted with no penetration/aspiration with any consistencies trialed.
Recommend:
(1) Continue regular solids/thin liquids
(2) General aspiration precautions
(3) Meds as tolerated
(4) Further dysphagia therapy not indicated. Will follow for speech/language evaluations given acute/subacute CVA
--- NOTE | 2023-12-20 11:24 | CM ---
Patient seen bedside, discussed PT recommendations of home PT versus outpatient PT. Patient reports he has had history of [facility] therapy, would like referral sent to [facility], CM will send in [facility]. CM will continue to follow for all discharge
planning needs.
Plan; home with [facility] therapy.
[facility]
[2023-12-20 11:28] VITALS: BP 132/90
[2023-12-20 11:30] VITALS: BP 131/83; BP 132/90; PULSE 67
[2023-12-20 11:40] LABS: Glucose - Point of Care 116 mg/dl (70-99)
--- NOTE | 2023-12-20 13:49 | W.PN.HOSP.TC ---
Addendum entered and electronically signed by Nolberto Young MD 12/20/23 14:24:
After speaking with neurologist Dr. Mary Kay Decker and citrus fruit packer Dr. Luma Moffett, plan is for patient to take Aspirin 81 mg daily only until Dr. Moffett speaks with patient's surgeon; Dr. Moffett will then call the patient if patient
should be started on Plavix or Eliquis.
Original Note:
Today's Communication/Plan
-
Discharge today
Assessment / Plan
Assessment / Plan
Physical Exam
General: Comfortable and Conversant
HEENT: Moist mucous membranes
Respiratory: Clear to Auscultation Bilaterally
Cardiac: S1/S2 and Regular Rhythm
GI: Soft and Non Tender. Positive bowel sounds.
Musculoskeletal: No Cyanosis
Skin: Warm and Dry
Neuro: Awake, Alert, Oriented. Cranial Nerves, Strength and Sensation all are grossly intact bilaterally.
Psych: Calm

MRI BRAIN ( PER RADIOLOGIST'S REPORT)
'IMPRESSION: Focus of acute to subacute infarction within the posterolateral left cerebellar hemisphere.
Focal area of encephalomalacia involving the anterolateral and superior left frontal lobe, compatible with old infarction, although a new finding CT of the head from December 12, 2022.
Foci of old infarction in the head of the caudate nucleus/ periventricular white matter lateral to the anterior body of the right lateral ventricle, and within the right lentiform nucleus.
Posterior disc/osteophyte complex at C3-4 appears to compress the spinal cord, possibly with a degree of central canal stenosis. As warranted, further evaluation with MRI of the cervical spine could be considered.'

Assessment/Plan
78y M with PMH significant for A-Fib, HTN, aortic dissection and prior CVA who presents to ED for evaluation of lightheadedness / dizziness. Patient states that he was seated at his desk on 12/18/23 and had been feeling very well. He stood and
became lightheaded, dizzy and felt as if he might pass out. He sat back down and closed his eyes for about 5 minutes. The symptoms improved but did not resolve. He completed a few work calls and when he stood again he again felt lightheaded and
dizzy. Given his persistent symptoms, EMS was called and patient was brought to the ED for further evaluation. At the time of admission, he was resting comfortably with no persistent symptoms / complaints.
Patient was seen at [facility] in late August for symptoms of double-vision. He was reportedly transfered to [place] - though he does not believe he had any bleeding, etc. His Eliquis was apparently stopped at that time.
No other / more recent med changes.
78 y/o male with lightheadedness / dizziness episode on 12/18/23. HTN, h/o aortic dissection, prior CVA, etc. [place] better once in the emergency department. BP initially elevated and now improved. CVA / TIA eval. MRI.
Lightheadedness/Ataxia, possible TIA/CVA
-Consulted Neurology, appreciate recommendations
-Brain MRI with acute to subacute infarction in the posterolateral left cerebellar hemisphere
-Continue Aspirin 81 mg daily. If cleared to switch to anticoagulation outpatient, would wait 3 days given small size of stroke (given risk of hemorrhagic conversion). Defer clearance (for Eliquis starting) to Dr. Briscoe/Dr. Moffett; patient is
considering Watchman procedure
-Neurology mentioned via [facility] on 12/20/23 that neurology is okay with patient being on Plavix on discharge -- call Dr. Decker's office to see whether the duration of Plavix needs to be extended (on discharge will do Plavix through December
2023)
-Echocardiogram completed
-Orthostatic vital signs negative
-Follow up with cardiology outpatient regarding Eliquis in initiation
-Continue current BP medications and adjust as needed for normotension.
-Continue Atorvastatin 80 mg by mouth daily at bedtime
Paroxysmal Atrial Fibrillation
Concern for pauses on telemetry
-Patient is currently off Eliquis following hospitalization at [facility], [place] in
-Continue Coreg for rate control
-Consulted cardiology, appreciate evaluation and recommendations
Chronic HFpEF
-Continue Furosemide
-Monitor Is&Os and Daily Weights
Essential Hypertension
-Continue Coreg and Valsartan
GERD
-Continue Protonix
ASCVD / Prior CVA
Aortic Dissection s/p Repair
DVT proph: SCDs and Lovenox.
Code Status: Full Code
More than 30 minutes spent in discharge including
Final examination of the patient
Summarizing hospital stay
Instructions for continuing care to all relevant caregivers
Preparation of discharge records, prescriptions, and referral forms
Total time spent (in minutes): 38
Anticipated Discharge: Today
Subjective/Interval History
-
Date of Service: December 20, 2023
Patient was seen and examined. He reported no complaints and said he was able to walk around fine without any balance or lightheadedness issues.
Objective Data
-
Vital Signs:
Vital Signs
Temp Pulse Resp BP Pulse Ox
98 F 67 18 132/90 98
12/20/23 11:28 12/20/23 11:28 12/20/23 11:28 12/20/23 11:28 12/20/23 11:28
I&O
12/19/23 12/20/23 12/21/23
06:59 06:59 06:59
Intake Total 480 / 480 600 / 600
Balance 480 / 480 600 / 600
[2023-12-20 13:57] VITALS: BP 107/62; BP 115/53; BP 115/66; PULSE 62; PULSE 67; PULSE 69
[2023-12-20 15:14] VITALS: BP 133/65
--- NOTE | 2023-12-20 15:47 | W.DCSUMMARY ---
Discharge Summary
Discharge Data
Date of Admission: 12/18/23
Date of Discharge: 12/20/23
Total time spent discharging patient (in min): 38
-
Pending Results: No
Hospital Course
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
dissection, who presented to the [facility] Emergency Department for evaluation of lightheadedness/dizziness. Cardiology and neurology were consulted. Neurology recommended continuing Aspirin 81 mg daily. Brain MRI showed acute to subacute
cerebellar stroke, as well as old strokes. Hospitalist discussed the case extensively with neurology and cardiology at [facility], and the decision was made for the patient to be discharged on Aspirin 81 mg daily only, and no Plavix or
Eliquis until patient's case was re-evaluated by outpatient cardiology (Dr. Moffett) and patient's surgeon Dr. Briscoe at [facility].
Discharge Plan
-
Patient Disposition: Home with Home Care
Discharge Diagnosis/Procedures: Lightheadedness/Ataxia
Acute to subacute infarction within the posterolateral left cerebellar hemisphere on Brain MRI imaging
Paroxysmal Atrial Fibrillation
Concern for pauses on telemetry
Chronic HFpEF
Essential Hypertension
GERD
ASCVD / Prior CVA
Aortic Dissection s/p Repair
MRI BRAIN ( PER RADIOLOGIST'S REPORT):
'IMPRESSION: Focus of acute to subacute infarction within the posterolateral left cerebellar hemisphere.
Focal area of encephalomalacia involving the anterolateral and superior left frontal lobe, compatible with old infarction, although a new finding CT of the head from December 12, 2022.
Foci of old infarction in the head of the caudate nucleus/ periventricular white matter lateral to the anterior body of the right lateral ventricle, and within the right lentiform nucleus.
Posterior disc/osteophyte complex at C3-4 appears to compress the spinal cord, possibly with a degree of central canal stenosis. As warranted, further evaluation with MRI of the cervical spine could be considered.'
Condition: Good
Diet: Low Fat, Low Cholesterol, Low Sodium and Restrict fluids to 64 oz
Activity: As tolerated
Driving Restrictions: Not until seen by your Dr
Other Services: VN
Specialty Instructions: Weigh Daily- Call MD for wt gain/loss 3 lbs overnight/5 lbs in 1 week
Activity Restrictions/Additional Instructions:
Ask your primary care physician about seeing a Speech-language pathologist, since your MOCA cognitive screen score is in the mild range (22/30 normal 26/30).
Follow up with cardiology regarding Eliquis in initiation.
After speaking with neurologist Dr. Mary Kay Decker and mud cleaner operator Dr. Luma Moffett, plan is for you to take Aspirin 81 mg daily only until Dr. Moffett speaks with your thoracic surgeon; Dr. Moffett will then call you should be started
on Plavix or Eliquis.
Please call Dr. Decker's (neurology) and Dr. Moffett's (mud cleaner operator's) office in 1 to 4 days to review your current medications and see if they want to make any changes.
Referrals:
Sandee Lamas CRNP [Specified Professional Personl] - in one to two weeks (Hospital follow-up. Stroke.)
Patricia Clayton MD [Active] - in less than 1 week (Watchman device)
Queenie Wheatley PA-C [Family Provider] - in less than 1 week
Luma Moffett MD [Active] - in less than 1 week (Hospital follow-up. Patient should start Eliquis? Or Plavix?)
Prescriptions:
Continued
aspirin 81 mg Tablet,Chewable
81 mg PO DAILY Qty: 0 0RF
acetaminophen 325 mg Tablet
650 mg PO Q4HPRN PRN (Reason: mild pain,headache,temp >101F ) Qty: 0 0RF
furosemide 40 mg tablet
40 mg PO DAILY
Rx Instructions:
Hold for systolic blood pressure under 110.
atorvastatin 80 mg Tablet
80 mg PO HS
carvedilol 6.25 mg Tablet
6.25 mg PO BID
fluticasone propionate 50 mcg/actuation [place],Suspension
1 spray INTRANASAL DAILYPRN PRN (Reason: conjestion)
loratadine [Claritin] 10 mg Tablet
10 mg PO DAILYPRN PRN (Reason: allergies)
valsartan 160 mg Tablet
160 mg PO BID
ferrous sulfate [FeroSul] 325 mg (65 mg iron) tablet
325 mg PO .5X DAILY
melatonin 5 mg tablet
5 mg PO HSPRN PRN (Reason: Sleep)
potassium chloride 20 mEq Tablet,Er Particles/Crystals
20 meq PO DAILY Qty: 30 0RF
pantoprazole 40 mg Tablet,Delayed Release (Dr/Ec)
40 mg PO DAILY Qty: 30 0RF
Discharge Orders:
Discharge Patient (As Directed); Ordered 12/20/23
Ordered By: Nolberto Young
Discharge Date and Time
Discharge Date/Time: 12/20/23 17:35
Print Language: BENINESE
--- NOTE | 2023-12-20 15:57 | PTOTSP ---
[employer] Evaluation
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 Outpatient
consult for further evaluation recommended. Patient in agreement. Discussed with case work aide and physician.
== END 2023-12-20 17:35 | disposition home health service (06) ==
LOC: 4 EAST ACU 22:12
PROVIDERS: Physician Assistant Medical; ADMITTING PHYSICIAN Hospitalist; ATTENDING PHYSICIAN Hospitalist; CONSULT PHYSICIAN Internal Medicine Cardiovascular Disease; CONSULT PHYSICIAN Psychiatry & Neurology Neurology; EMERGENCY PHYSICIAN Student in an Organized Health Care Education/Training Program; FAMILY PHYSICIAN Physician Assistant
DX: R27.0 Ataxia, unspecified (principal); I63.89 Other cerebral infarction; R55 Syncope and collapse; I11.0 Hypertensive heart disease with heart failure; R61 Generalized hyperhidrosis; M25.78 Osteophyte, vertebrae; R13.10 Dysphagia, unspecified; I67.82 Cerebral ischemia; E78.00 Pure hypercholesterolemia, unspecified; I48.0 Paroxysmal atrial fibrillation; G93.89 Other specified disorders of brain; I25.10 Atherosclerotic heart disease of native coronary artery without angina pectoris; K21.9 Gastro-esophageal reflux disease without esophagitis; I44.0 Atrioventricular block, first degree; I45.10 Unspecified right bundle-branch block; Z79.82 Long term (current) use of aspirin; Z79.51 Long term (current) use of inhaled steroids; Z86.73 Personal history of transient ischemic attack (TIA), and cerebral infarction without residual deficits; Z79.02 Long term (current) use of antithrombotics/antiplatelets; Z86.79 Personal history of other diseases of the circulatory system
CPT/HCPCS: 70450; 70551; 74230; 80048; 80053; 80061; 82962; 83036; 83735; 84484; 85025; 85027; 92523; 92610; 92611; 93005; 93306; 97116; 97163; 97166; 97530; 99285; G0378

== ENCOUNTER → 2024-01-29 07:23 | Outpatient (REF) | payer OTHER, SELFPAY | LOC: HWRCS 07:23 | PROVIDERS: ATTENDING PHYSICIAN Internal Medicine Cardiovascular Disease; FAMILY PHYSICIAN Physician Assistant | DX: Z95.2 Presence of prosthetic heart valve (principal); I48.0 Paroxysmal atrial fibrillation; Z98.890 Other specified postprocedural states | CPT/HCPCS: 93306 ==

== ENCOUNTER → 2024-08-14 14:59 | Outpatient (REF) | payer OTHER, SELFPAY | LOC: HWRCS 14:59 | PROVIDERS: ATTENDING PHYSICIAN Internal Medicine Cardiovascular Disease; FAMILY PHYSICIAN Physician Assistant | DX: R07.2 Precordial pain (principal) | CPT/HCPCS: 93306 ==

== ENCOUNTER → 2024-08-26 12:43 | Outpatient (REF) | payer OTHER, SELFPAY | LOC: RCS 12:43 | PROVIDERS: ATTENDING PHYSICIAN Internal Medicine Cardiovascular Disease; FAMILY PHYSICIAN Physician Assistant | DX: R00.1 Bradycardia, unspecified (principal) | CPT/HCPCS: 93225; 93226 ==

== ENCOUNTER → 2024-09-29 08:44 | Outpatient (REF) | payer OTHER, SELFPAY | LOC: RCS 08:44 | PROVIDERS: ATTENDING PHYSICIAN Nurse Practitioner Gerontology; FAMILY PHYSICIAN Physician Assistant | DX: I44.1 Atrioventricular block, second degree (principal) | CPT/HCPCS: 93225; 93226 ==

== ENCOUNTER 2025-04-05 08:20 | Emergency (ER) | payer OTHER, SELFPAY ==
[2025-04-05] VITALS (7 sets, daily range): BP systolic 116–145; BP diastolic 59–94
--- NOTE | 2025-04-05 08:32 | ED.GENMED ---
History of Present Illness
<Bret Malloy PA-C - Last Filed: 04/05/25 11:28>
General
Chief Complaint: Dizziness
Source: ambulance crew
Time Seen by Provider: 04/05/25 08:24
History of Present Illness
History of Present Illness:
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
to severe vertigo and vomiting. On arrival EMS administered 5 mg of Versed, due to bradycardia he received a half a milligram of atropine and 4 mg of Zofran for vomiting. On arrival to the ER patient is somnolent/obtunded, unable to provide any
history, not withdrawing to pain or able to answer any questions at this time. History was obtained via EMS and records. Patient is on Eliquis due to the history of A-fib, unknown compliance.
Past History
<Bret Malloy PA-C - Last Filed: 04/05/25 11:28>
Past History
ED Past Medical History: Arrthythmia, HTN, Hypercholesterolemia, Valvular disease and Other (Aortic dissection)
ED Past Surgical History: Cardiac and Orthopedic
Social History
Tobacco: Non-smoker
Alcohol: None
Drug: None
Personal:
Living: with family
Review of Systems
<Bret Malloy PA-C - Last Filed: 04/05/25 11:28>
Review of Systems
All Other Systems: ROS reviewed and negative except as documented in HPI and ROS
Phy Exam
<Bret Malloy PA-C - Last Filed: 04/05/25 11:28>
Physical Exam
Physical Exam:
GENERAL: Obtunded, unable to answer questions, placed on 2L NC for supportive care
HEAD: Normocephalic atraumatic
EYE: clear conjunctiva
NECK: Supple, no significant adenopathy.
ENT: o/p clr, mmm.
CARDIAC: Bradycardic rate, irregular rhythm, profound systolic murmur at the left sternal border
LUNGS: Clear breath sounds bilaterally, no acute respiratory distress, no wheezes/rales/rhonchi
ABDOMEN: Soft, no grimacing with palpation
NEUROLOGICAL: Unable to assess
SKIN: Warm and dry, skin intact.
MUSCULOSKELETAL: Trace ankle edema, well perfused.
PSYCH: Unable to assess
Scores
<Bret Malloy PA-C - Last Filed: 04/05/25 11:28>
NIH Stroke Score
Level of Consciousness: 2 - Obtunded
LOC Questions: 2-Neither correct
LOC Commands: 0-Performs both correctly
Best Horizontal Gaze: 0-Normal
Visual Rhodes: 0=Normal, no visual loss
Facial Palsy: 0=Normal, symmetrical
Motor - Right Arm: 0=No drift 10 seconds
Motor - Left Arm: 0=No drift 10 seconds
Motor - Right Le-No drift 5 seconds
Motor - Left Le-No drift 5 seconds
Limb Ataxia: 0-Absent
Sensation: 0-Normal
Best Language: 1-Mild aphasia
Dysarthria: 1-Mild slurring
Extinction and Inattention: 0-No abnormality
NIH Total Score:: 6
Heart Failure Risk
Heart Failure Risk Score: Not Applicable
Heart Score for Chest Pain Patients
STEMI patient?: Not applicable
Withdrawal Assessment of Alcohol
Withdrawal Assessment Completed?: Not applicable
<Iron Camarillo MD - Last Filed: 04/05/25 12:19>
NIH Stroke Score
NIH Total Score:: 6
Course
<Bret Malloy PA-C - Last Filed: 04/05/25 11:28>
Orders/Labs/Results
Orders:
Orders
04/05/25
Electrocardiogram (*1) Stat
Reason for Study: Chest Pain
Comment: DONE NO ORDER ENTERED
04/05/25 Breakfast
NPO
Allow oral meds: No
Allow clear liquids: No
04/05/25 08:26
Electrocardiogram (*1) Urgent
Reason for Study: Bradycardia / Tachycardia
EKG- Treatment ONCE
04/05/25 08:31
CT HEAD STROKE ALERT W/o Cont Urgent
Comment:
Reason For Exam: vertigo, AMS
CT HEAD/NECK ANG STROKE ALERT Urgent
Comment:
Reason For Exam: vertigo, AMS
04/05/25 08:34
CT Brain Perfusion Urgent
Comment:
Reason For Exam: stroke, vertigo, AMS
04/05/25 08:48
Alcohol Urgent
Complete Blood Count/With Diff Urgent
Comprehensive Metabolic Panel Urgent
NT-proBNP Urgent
PTT Urgent
Prothrombin Time Urgent
Troponin I Urgent
04/05/25 08:49
CR Chest Portable - 1 View Urgent
Comment:
Reason For Exam: AMS
Reason Study Needs to be Portable: Patient Unstable
04/05/25 09:23
Lidocaine 2% [Lidocaine Uro-Jet 2%] 1 syringe .ROUTE .STK-MED ONE
04/05/25 09:33
Urinalysis Reflex To Culture Urgent
Date Specimen was Collected: 04/05/25
Time Specimen was Collected: 08:53
Urine Microscopic Reflex Cult Urgent
04/05/25 09:38
NEUROLOGY CONSULT Urgent
Consulting Provider: Amari Cordova
Was physician already notified: Yes
04/05/25 10:12
Ondansetron Injectable [Zofran] 4 mg .ROUTE .STK-MED ONE
04/05/25 10:15
Ondansetron Injectable [Zofran] 4 mg IV NOW STA
04/05/25 10:53
0.9% Sodium Chloride 1000 ml [Nss] 1,000 ml IV BOLUS
Abnormal Lab Results
04/05/25 04/05/25
08:48 09:33
RBC 4.68 L 10^6/uL
(4.70-6.10)
Hgb 12.8 L g/dL
(13.0-18.0)
MCHC 32.6 L g/dL
(33.0-37.0)
RDW 14.6 H %
(11.5-14.5)
MPV 10.6 H fL
(7.4-10.4)
Absolute Lymphs (auto) 1.0 L 10^3/uL
(1.2-3.4)
Neutrophils % 76.2 H %
(42.2-75.2)
Lymphocytes % 15.4 L %
(20.5-51.1)
PT 15.0 H Sec
(11.4-14.6)
APTT 42.3 H Sec
(23.4-35.0)
BUN 29 H mg/dl
(9-20)
Glucose 121 H mg/dl
(70-99)
Urine Glucose 4+ A
(Negative)
Urine Albumin (Reflex) 1+ A
(Neg - Trace)
04/05/25 08:48
04/05/25 08:48
Vital Signs
Initial and Last Documented VS:
Initial Vital Signs
BP
121/59
04/05/25 08:21
Last Documented Vital Signs
Temp Pulse Resp BP Pulse Ox
97.6 F 63 27 116/69 100
04/05/25 08:27 04/05/25 11:00 04/05/25 11:00 04/05/25 11:00 04/05/25 11:00
<Iron Camarillo MD - Last Filed: 04/05/25 12:19>
Orders/Labs/Results
Orders:
Orders
04/05/25
Electrocardiogram (*1) Stat
Reason for Study: Chest Pain
Comment: DONE NO ORDER ENTERED
04/05/25 Breakfast
NPO
Allow oral meds: No
Allow clear liquids: No
04/05/25 08:26
Electrocardiogram (*1) Urgent
Reason for Study: Bradycardia / Tachycardia
EKG- Treatment ONCE
04/05/25 08:31
CT HEAD STROKE ALERT W/o Cont Urgent
Comment:
Reason For Exam: vertigo, AMS
CT HEAD/NECK ANG STROKE ALERT Urgent
Comment:
Reason For Exam: vertigo, AMS
04/05/25 08:34
CT Brain Perfusion Urgent
Comment:
Reason For Exam: stroke, vertigo, AMS
04/05/25 08:48
Alcohol Urgent
Complete Blood Count/With Diff Urgent
Comprehensive Metabolic Panel Urgent
NT-proBNP Urgent
PTT Urgent
Prothrombin Time Urgent
Troponin I Urgent
04/05/25 08:49
CR Chest Portable - 1 View Urgent
Comment:
Reason For Exam: AMS
Reason Study Needs to be Portable: Patient Unstable
04/05/25 09:23
Lidocaine 2% [Lidocaine Uro-Jet 2%] 1 syringe .ROUTE .STK-MED ONE
04/05/25 09:33
Urinalysis Reflex To Culture Urgent
Date Specimen was Collected: 04/05/25
Time Specimen was Collected: 08:53
Urine Microscopic Reflex Cult Urgent
04/05/25 09:38
NEUROLOGY CONSULT Urgent
Consulting Provider: Amari Cordova
Was physician already notified: Yes
04/05/25 10:12
Ondansetron Injectable [Zofran] 4 mg .ROUTE .STK-MED ONE
04/05/25 10:15
Ondansetron Injectable [Zofran] 4 mg IV NOW STA
04/05/25 10:53
0.9% Sodium Chloride 1000 ml [Nss] 1,000 ml IV BOLUS
Abnormal Lab Results
04/05/25 04/05/25
08:48 09:33
RBC 4.68 L 10^6/uL
(4.70-6.10)
Hgb 12.8 L g/dL
(13.0-18.0)
MCHC 32.6 L g/dL
(33.0-37.0)
RDW 14.6 H %
(11.5-14.5)
MPV 10.6 H fL
(7.4-10.4)
Absolute Lymphs (auto) 1.0 L 10^3/uL
(1.2-3.4)
Neutrophils % 76.2 H %
(42.2-75.2)
Lymphocytes % 15.4 L %
(20.5-51.1)
PT 15.0 H Sec
(11.4-14.6)
APTT 42.3 H Sec
(23.4-35.0)
BUN 29 H mg/dl
(9-20)
Glucose 121 H mg/dl
(70-99)
Urine Glucose 4+ A
(Negative)
Urine Albumin (Reflex) 1+ A
(Neg - Trace)
04/05/25 08:48
04/05/25 08:48
Vital Signs
Initial and Last Documented VS:
Initial Vital Signs
BP
121/59
04/05/25 08:21
Last Documented Vital Signs
Temp Pulse Resp BP Pulse Ox
97.6 F 63 27 116/69 100
04/05/25 08:27 04/05/25 11:00 04/05/25 11:00 04/05/25 11:00 04/05/25 11:00
<Bret Malloy PA-C - Last Filed: 04/05/25 11:28>
MDM/Problems Addressed
Differential Diagnosis Includes:
Medication induced AMS 2/2 versed
CVA
ICH
Dissection
Cardiac Arrhythmia
Less concern for infectious etiology
CHF
MDM/Problems Addressed:
79-year-old male presenting to the ER after had contacted EMS due to a severe onset of vertigo, history of vertigo in the past. EMS administered 5 mg of Versed and Zofran, noted to be bradycardic so was also given a half a milligram of
atropine. On arrival to the ER patient is significantly obtunded but maintaining his O2 sats. Given his history a stroke alert was called although patient is not a TNK candidate due to being on Eliquis. Labs ordered. Anticipate admission.
Chronic conditions affecting care: Arrhythmia and Neurological disorder
Acute Exacerbation and/or Progression of Chronic Illness: Arrhythmia and Neurological disorder
<Bret Malloy PA-C - Last Filed: 04/05/25 11:28>
*Pulse Oximetry
SaO2: 98
Oxygen Mode of Delivery: Room air
Patient hypoxic: no
*EKG
Heart Rate: 49
Rate: bradycardiac
Rhythm: a-fib
QRS Pattern: right bundle branch block
*Lithograph Printer Interpretation
Rate: bradycardiac
Heart Rate: 58
Rhythm: a-fib
*Critical Care Note
Total Time (30-74mins, 75-104mins- exclusive of procedures): 75
comment:
Critical care statement: A total of 75 minutes of critical care time was provided for this patient. This includes management of unstable vital signs, evaluation of the patient at bedside, reviewing the patient's pertinent medical records, discussion
with consultants, review of old EKGs and review of pertinent medical records. This time with separate from time utilized to perform the aforementioned documented procedures
Data Reviewed
Review of Other/Old Records Reveals: Labs, Records and Radiology Studies
Source: records, family and ambulance crew
<Bret Malloy PA-C - Last Filed: 04/05/25 11:28>
Patient Management
Discussion with other providers: Hospitalist, Business Solutions Architect and Radiologist
Escalation/DeEscalation of care consider admission/obs:
Following labs and CT imaging patient was accepted to hospitalist team here for further evaluation and treatment of altered mental status and possible CVA.
Shortly after patient was accepted for admission neurology felt it might be beneficial for the patient to be transferred to [facility] to be evaluated as a possible IAT candidate given the findings on CTA. Please see attending's note for further timeline.
Patient was ultimately accepted in transfer at [facility]. Hospitalist team was notified that patient will be transferred as opposed to being admitted here.
ED Attending Note
<Bret Malloy PA-C - Last Filed: 04/05/25 11:28>
-
Portions of this chart may have been created with voice recognition software.� Occasional wrong word or��sound alike� substitutions may have occurred due to the inherent limitations of voice recognition software.
<Iron Camarillo MD - Last Filed: 04/05/25 12:19>
ED Attending Note
Patient seen and examined by attending physician: Yes
I performed the substantive portion of visit, reviewed & personally made and approve the management plan that is documented in note by myself or ROSA.: Yes
ED Attending Note:
79-year-old male brought in with lethargy vertigo and some recent confusion. Most of the history is from the . Some history from the medics. The states he had a few episodes of confusion in the last few days but otherwise was okay. This
morning an hour or so prior to coming to the ER it was noted that he was very lethargic and complaining of severe vertigo. Medics state on arrival he was lethargic but could point to his meds and cognitively follows some simple commands. He was
given 5 mg of Versed Zofran and was bradycardic at 1 point and given 0.5 mg of atropine. No other history is available from the patient. He is on Eliquis 5 mg twice daily and faithful. He is got a history complicated by multiple infarcts in the
past. Also history of aortic dissection.
On exam patient is very lethargic. Will follow very simple commands, sticking out his tongue gripping hands minimally. Not able to speak clearly. Pupils are pinpoint bilaterally. No nystagmus. Warm and dry. Bradycardic and mildly irregular.
Previous records all reviewed. Discussed at length with the patient's . Very concerned although diagnosis is unknown at this time. Stroke alert was called. CT head stable. CTA pending. Perfusion scan pending.
I went over to radiology to review the studies. Occlusion of the left ICA. There appears to be some collateral flow through a anterior communicating artery branch. He is also occluded left vertebral artery which is more likely the cause of his
issues. Neurology aware we went back over to review with radiology. Neurology is in currently with the family and the patient. Dissection appears stable
1025... Multiple discussions with family. Neurology is talking to IR interventional at [place]. They are evaluating his studies now.
1043....Dr bowie accepting. Apparently going to the emergency department CT scanner first. Family signed consent
Also reviewed EKGs with cardiology. I did clinically did not feel he needed emergent pacemaker. Blood pressure is stable with the bradycardic atrial fibrillation. Cardiology agrees.
Critical care 70 minutes
Discharge Plan
Departure
Patient Disposition: Acute Care Hospital
Date of Disposition: 04/05/25
Time of Disposition: 09:23
Discharge Problem:
Acute alteration in mental status, Acute CVA (cerebrovascular accident)
Prescriptions:
No Action
aspirin 81 mg Tablet,Chewable
81 mg PO DAILY Qty: 0 0RF
acetaminophen 325 mg Tablet
650 mg PO Q4HPRN PRN (Reason: mild pain,headache,temp >101F ) Qty: 0 0RF
furosemide 40 mg tablet
40 mg PO DAILY
Rx Instructions:
Hold for systolic blood pressure under 110.
atorvastatin 80 mg Tablet
80 mg PO HS
carvedilol 6.25 mg Tablet
6.25 mg PO BID
fluticasone propionate 50 mcg/actuation [place],Suspension
1 spray INTRANASAL DAILYPRN PRN (Reason: conjestion)
loratadine [Claritin] 10 mg Tablet
10 mg PO DAILYPRN PRN (Reason: allergies)
valsartan 160 mg Tablet
160 mg PO BID
ferrous sulfate [FeroSul] 325 mg (65 mg iron) tablet
325 mg PO .5X DAILY
melatonin 5 mg tablet
5 mg PO HSPRN PRN (Reason: Sleep)
potassium chloride 20 mEq Tablet,Er Particles/Crystals
20 meq PO DAILY Qty: 30 0RF
pantoprazole 40 mg Tablet,Delayed Release (Dr/Ec)
40 mg PO DAILY Qty: 30 0RF
Hospital Transfer
Other hospital: [facility]
I certify that the patient requires transfer: Yes
Discussed case with accepting physician: Dr. Bowie
Reason for transfer: higher level of care, medical necessity and specialties available
Interventions
Interventions:
*Risk Screen - Suicide Last Done: 04/05/25 08:31
*Neglect/Abuse Screening Last Done: 04/05/25 08:31
*ED COVID-19 Vaccine History Last Done: 04/05/25 08:44
*ED Influenza Vaccine History Last Done: 04/05/25 08:44
[facility] Fall Risk Assessment Tool Last Done: 04/05/25 08:43
*Nursing Disposition Last Done: 04/05/25 11:45
ED- Neurological Assessment Last Done: 04/05/25 10:00
ED- Cardiac Assessment Last Done: 04/05/25 08:42
ED Swallowing Screen Last Done: 04/05/25 08:47
Discharge Date and Time
Print Language: UPPER SORBIAN
--- NOTE | 2025-04-05 08:39 | CON.NEURO ---
Neuro Assessment/Plan
Assessment
#Acute stroke
#L vert occlusion
#L ICA occlusion
found to have occlusions listed above. 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 Will transfer to [facility] for further management
Plan
HOB flat as tolerated
fluids
transfer to [facility] for consideration of thrombectomy
Consultation
Order
Date of Consultation: 04/05/25
Requesting Provider:
Reason for Consult:
Subjective/Objective
Subjective Data
Date of Service: April 05, 2025
HPI: Mr. Langford is a 79 y.o. male w/ a PMH of L cerebellar infarct, type A aortic dissection s/p repair 11/2022, type B aortic dissection s/p repair 08/2023, afib on eliquis who is presenting as a stroke alert for vertigo. He woke up feeling dizzy,
nauseous, and vomiting. EMS called. They gave him 4mg zofran for nausea, 5mg versed for vertigo, and 0.5mg atropine for bradycardia. Per ED who spoke to his , he has had episodes of confusion the last couple of days. This morning developed
sudden groaning and was vertiginous and lethargic. Despite being lethargic, he was able to point to the table and say there's my meds when EMS arrived. His NIHSS on arrival was 31 due to unresponsiveness, which was most likely due to versed. On
reexamination, he was more awake, and his new NIHSS was 8 (arouses to minor stimulation, 1 question right, no horizontal eye movement, R arm drifts doesn't hit bed, R leg drifts doesnt hit bed, severe dysarthria). His CTA was discussed with ED, IM
and radiology attendings and concerning for new Left vert occlusion and Left ICA occlusion from last CTA scan in 2022. Case discussed with Stroke fellow via [facility] transfer center. Patient will be transferred to [facility]. NIHSS prior to transfer: 8 (arouses
to minor stimulation, 1 question right, no horizontal eye movement,, R leg some effort against, severe dysarthria; right arm improved). He vomited multiple times in the ED. Bobby and daughter are at bedside. His last eliquis dose was the night prior
presentation. Baseline is normal.
PMH: cerebellar infarcts, aortic dissection, afib on eliquis
PSH: see HPI
Allergies: NKDA
Meds: per chart
FH: unable to obtain due to dysarthria
SH: unable to obtain due to dysarthria
Objective Data
Vital Signs
Temp Pulse Resp BP Pulse Ox
36.4 C 61 12 121/59 98
04/05/25 08:27 04/05/25 08:27 04/05/25 08:27 04/05/25 08:27 04/05/25 08:34
Patient Allergies
No Known Allergies Allergy (Verified 05/31/23 07:45)
CVA Assessment
Onset of Stroke Symptoms
Onset of symptoms known: Yes
Date of onset of symptoms: 04/05/25
Time pt last seen normal is known: Yes
Date last time pt seen normal: 04/04/25
Time last time pt seen normal: 22:30
NIH Stroke Score
Level of Consciousness: 3 - Totally unresponsive
LOC Questions: 2-Neither correct
LOC Commands: 2-Performs neither correctly
Best Horizontal Gaze: 0-Normal
Visual Rhodes: 3=Bilateral hemianopia
Facial Palsy: 0=Normal, symmetrical
Motor - Right Arm: 4=No movement
Motor - Left Arm: 4=No movement
Motor - Right Le-No movement
Motor - Left Le-No movement
Limb Ataxia: 0-Absent
Sensation: 2-Severe loss
Best Language: 3-Mute/global aphasia
Dysarthria: UN-Intubated, other
Extinction and Inattention: 0-No abnormality
NIH Total Score:: 31
Tenecteplase Contraindications
Inclusion and Exclusion criteria reviewed: Yes
Reasons for NON-Tx with Thrombolytics ABSOLUTE Exclusions: Patient taking oral anticoagulant and last dose within 48 hours
Physical Exam
-
General: Well Developed and Well Nourished
Eyes: Unremarkable and No Ptosis
HEENT: Normocephalic and Atraumatic
Respiratory: Clear to Auscultation
Cardiac: Regular Rhythm
GI: Normal Bowel Sounds
Extended Neurological Exam
Attention Span & Concentration: Awake (initially unarousable but then arousable. able to answer questions later but significant dysarthria limits exam)
Memory: Unable to Assess
Tremor: Hand Tremor Absent
Involuntary Movement: None
Speech: Dysarthric (No clear aphasia, severe dysarthria)
Cranial Nerve II: Left Eye: Pupillary Reactivity Unremarkable and Visual Rhodes Grossly Intact
Cranial Nerve II: Right Eye: Pupillary Reactivity Unremarkable and Visual Rhodes Grossly Intact (No BTT but able to say the number of fingers in each VF but limited due to dysarthria)
Cranial Nerves III, IV, : Extraocular Movement: Other (complete horizontal gaze palsy. Limited up and down gaze. )
Cranial Nerve V: Facial Sensation: Unable to Assess
Cranial Nerve VII: Facial Symmetry: Normal Facial Symmetry
Cranial Nerve VIII: Hearing: Unremarkable Hearing to Normal Conversational Volume
Cranial Nerves IX, X: Palate Movement: Unable to Assess
Cranial Nerve XI: Shoulder Shrug: Unable to Assess
Cranial Nerve XII: Tongue Protusion: Unable to Assess
Muscle Strength, Overall: Other (grossly normal on left. initially R arm drifted but didn't hit bed. R arm improved to no drift prior to transfer. R leg worsened from drift doesn't hit bed to some effort against gravity)
Muscle Bulk & Tone: Bulk Unremarkable and Tone Unremarkable
Touch Sensation: Unremarkable
Gait & Station: Unable to Assess
Data Reviewed
-
CT-A: Image Reviewed (L vert and L ICA occlusion, aortic dissection)
CT Head: Image Reviewed (No acute hemorrhage)
Medications
-
Home Medications
�Medication �Instructions �Recorded
acetaminophen 325 mg tablet 650 mg (2 x 325 mg) PO Q4HPRN PRN 12/20/22
mild pain,headache,temp >101F #0
tabs
aspirin 81 mg chewable tablet 81 mg PO DAILY Arrhythmia #0 tabs 12/20/22
pantoprazole 40 mg tablet,delayed 40 mg PO DAILY Gastrointestinal 01/02/23
release issue #30 tabs
potassium chloride 20 mEq 20 meq PO DAILY Electrolyte 01/02/23
tablet,extended release(part/cryst) Repletion #30 tabs
furosemide 40 mg tablet 40 mg PO DAILY Fluid 05/31/23
retention/Swelling
atorvastatin 80 mg tablet 80 mg PO HS 12/18/23
carvedilol 6.25 mg tablet 6.25 mg PO BID 12/18/23
ferrous sulfate 325 mg (65 mg 325 mg PO .5X DAILY 12/18/23
iron) tablet (FeroSul)
fluticasone propionate 50 1 spray intranasal DAILYPRN PRN 12/18/23
mcg/actuation nasal conjestion
spray,suspension
loratadine 10 mg tablet (Claritin) 10 mg PO DAILYPRN PRN allergies 12/18/23
melatonin 5 mg tablet 5 mg PO HSPRN PRN Sleep 12/18/23
valsartan 160 mg tablet 160 mg PO BID 12/18/23
[2025-04-05 09:04] LABS: Hematocrit 39.3 % (39.0-52.0); Hemoglobin 12.8 g/dL (13.0-18.0); Mean Corp Hgb Conc. 32.6 g/dL (33.0-37.0); Mean Corpuscular Volume 84.0 fL (80.0-94.0); Nucleated Red Blood Cells % 0 % (-); Platelet Count 142 10^3/uL (130-400); Red Cell Dist. Width 14.6 % (11.5-14.5)
[2025-04-05 09:08] LABS: ALT (SGPT) 31 U/L (0-50); AST (SGOT) 30 U/L (17-59); Albumin 4.3 g/dl (3.5-5.0); Alkaline Phosphatase 112 U/L (38-126); Blood Urea Nitrogen 29 mg/dl (9-20); Calcium 9.0 mg/dl (8.4-10.2); Carbon Dioxide 26 mmol/L (22-30); Chloride 106 mmol/L (98-107); Glucose 121 mg/dl (70-99); Potassium 4.4 mmol/L (3.5-5.1); Sodium 137 mmol/L (135-145); Total Protein 6.5 g/dl (6.3-8.2); eGFR > 60.00
[2025-04-05 09:19] LABS: Troponin I < 0.012 ng/ml
[2025-04-05 09:20] LABS: INR 1.17; PT 15.0 Sec (11.4-14.6)
[2025-04-05 09:21] LABS: APTT 42.3 Sec (23.4-35.0)
[2025-04-05 09:48] LABS: Urine Character Slightly Cloudy (Clear)
[2025-04-05 10:03] LABS: Urine Red Blood Cell None Seen /HPF (0-2)
[2025-04-05] MEDS: ZOFRAN 4 MG IV (10:15)
[2025-04-05] MEDS: NSS 1000 IV (10:58)
--- NOTE | 2025-04-05 11:54 | EDRN ---
Transfer center calling to provide a numvber for me to give report [phone]. Unfortunately when I call this number it goes to VM box..
--- NOTE | 2025-04-05 12:04 | EDRN ---
Call to ICU- spoke with [facility] who says the pt is not coming there and to call the stepdown unit again
--- NOTE | 2025-04-05 12:20 | EDRN ---
Report again to step down unit and a nurse took report ( Omar?). who will be assuming care of this pt from the stroke team. [phone]
== END 2025-04-05 11:30 | disposition short-term general hospital (02) ==
LOC: EMR 08:20
PROVIDERS: Physician Assistant Medical; CONSULT PHYSICIAN Student in an Organized Health Care Education/Training Program; EMERGENCY PHYSICIAN Emergency Medicine; FAMILY PHYSICIAN Physician Assistant
DX: I63.212 Cerebral infarction due to unspecified occlusion or stenosis of left vertebral artery (principal); I63.232 Cerebral infarction due to unspecified occlusion or stenosis of left carotid arteries; R47.1 Dysarthria and anarthria; R29.708 NIHSS score 8; I45.10 Unspecified right bundle-branch block; I48.91 Unspecified atrial fibrillation; I10 Essential (primary) hypertension; E78.00 Pure hypercholesterolemia, unspecified; Z79.01 Long term (current) use of anticoagulants; Z79.82 Long term (current) use of aspirin; Z86.73 Personal history of transient ischemic attack (TIA), and cerebral infarction without residual deficits; Z95.2 Presence of prosthetic heart valve
CPT/HCPCS: 99291; 99292; 96374; 0042T; 70450; 70496; 70498; 71045; 80053; 81003; 81015; 82077; 83880; 84484; 85025; 85610; 85730; 93005; Q9967